=== PATIENT | female | born 1960 | race Caucasian/White ===

== ENCOUNTER → 2017-08-26 | Outpatient (CLI) | payer OTHER, MEDICAID ==
--- NOTE | 2017-08-26 15:58 | RAD ---
HISTORY: Cough. Shortness of breath. Study: PA and lateral chest Comparison: 07/17/2014 Findings: There has been development of patchy infiltrate/atelectasis in the left lung base. Otherwise, the luis enrique ngs are clear. The heart size is normal. Minimal convex right thoracic scoliosis is noted. Minimal spondylosis is noted. IMPRESSION: 1. Minimal left lower lobe atelectatic change/infiltrate suggestive of possible pneumonia. 2. Otherwise, no radiographic evidence of acute cardiopulmonary disease or significant change is not ed when compared to the prior examination. Reported By:
== END ==
LOC: RAD 15:24
PROVIDERS: ATTEND Nurse Practitioner Family
DX: R06.02 Shortness of breath (principal); J41.8 Mixed simple and mucopurulent chronic bronchitis
CPT/HCPCS: 71046

== ENCOUNTER → 2017-09-02 | Outpatient (CLI) | payer OTHER, MEDICAID ==
--- NOTE | 2017-09-02 12:58 | RAD ---
History: Cough and pneumonia Study: PA and lateral chest Comparison: August 26 Findings: The left lower lobe has cleared since the prior examination. There is no lung consolidation or atelectasis or effusion on today's exam. The heart size is normal. There is no significant bony a bnormality. Impression: No current evidence for active cardiopulmonary disease Reported By:
== END ==
LOC: RAD 12:32
PROVIDERS: ATTEND Nurse Practitioner Family
DX: J18.9 Pneumonia, unspecified organism (principal); R06.02 Shortness of breath
CPT/HCPCS: 71046